=== PATIENT | female | born 1955 | race Asian ===

== ENCOUNTER → 2016-07-31 | Outpatient (CLI) | payer OTHER, BC | LOC: MC.RAD 16:00 | DX: Z12.31 Encounter for screening mammogram for malignant neoplasm of breast (principal) ==

== ENCOUNTER 2016-10-03 07:33 | Day surgery (SDC) | payer BC ==
[~2016-10-03] VITALS: Ht 157.5 cm; Wt 64.0 kg
[2016-10-03 08:17] VITALS: BP 115/87; PULSE 73; TEMP 97.8
[2016-10-03 09:00] VITALS: BP 103/75; PULSE 70; TEMP 97.4
[2016-10-03 09:15] VITALS: BP 98/70; PULSE 66
[2016-10-03 13:25] VITALS: BP 92/63; PULSE 64
== END 2016-10-03 09:35 | disposition home or self-care (01) ==
LOC: SDCO 07:33
DX: Z12.11 Encounter for screening for malignant neoplasm of colon (principal); Z90.710 Acquired absence of both cervix and uterus
CPT/HCPCS: J2250; J3010; J7030

== ENCOUNTER → 2017-09-11 | Outpatient (CLI) | payer BC | LOC: MC.RAD 15:09 | DX: Z12.31 Encounter for screening mammogram for malignant neoplasm of breast (principal) ==

== ENCOUNTER → 2018-11-08 | Outpatient (CLI) | payer BC | LOC: MC.RAD 09:45 | DX: Z12.31 Encounter for screening mammogram for malignant neoplasm of breast (principal) ==

== ENCOUNTER → 2019-12-26 | Outpatient (CLI) | payer BC | LOC: COL.RAD 07:30 | DX: K80.20 Calculus of gallbladder without cholecystitis without obstruction (principal) ==

== ENCOUNTER → 2020-09-20 | Outpatient (CLI) | payer BC | LOC: MC.RAD 09:00 | DX: Z12.31 Encounter for screening mammogram for malignant neoplasm of breast (principal) ==

== ENCOUNTER → 2021-09-25 | Outpatient (CLI) | payer BC | LOC: COL.CARD 08:04 | DX: Z01.818 Encounter for other preprocedural examination (principal); K81.9 Cholecystitis, unspecified ==

== ENCOUNTER → 2022-01-28 | Outpatient (CLI) | payer BC | LOC: MC.RAD 12-13 08:30 | DX: Z12.31 Encounter for screening mammogram for malignant neoplasm of breast (principal) ==

== ENCOUNTER → 2023-06-03 | Outpatient (CLI) | payer MEDICARE | LOC: MC.RAD 09:55 | DX: Z12.31 Encounter for screening mammogram for malignant neoplasm of breast (principal) ==